=== PATIENT | male | born 1955 | race Caucasian/White ===

== ENCOUNTER 2017-05-16 09:30 | Inpatient (IN) | payer OTHER ==
[2017-05-02 13:26] VITALS: BMI 26.0
--- NOTE | 2017-05-02 14:05 | PAT Medication Instructions ---
Service Date May 02, 2017. Current Home Medication List Alprazolam (Xanax), 1 MG PO QID Aspirin (Aspirin Ec), 81 MG PO QAM Duloxetine HCl (Cymbalta), 1 CAP PO BID Fish Oil (Fish Oil), 1 CAP PO BID Lisinopril (Zestril), 10 MG PO QAM Metformin Hcl (Glucophage), 500 MG PO BID Multivitamin (Multivitamin), 1 TAB PO QAM Oxycodone Ir (Roxicodone Ir), 10 MG PO Q6H PRN for Pain Prednisone (Prednisone), 10 MG PO BID Medication Instructions For Your Scheduled Surgery - Hold the following medications starting 05/02/17: Fish Oil (Fish Oil), 1 CAP PO BID - Hold the following medications 48 hours prior to surgery: Metformin Hcl (Glucophage), 500 MG PO BID - Hold the following medications the morning of surgery: Multivitamin (Multivitamin), 1 TAB PO QAM Lisinopril (Zestril), 10 MG PO QAM - Take the following medications the morning of surgery with a sip of water: Alprazolam (Xanax), 1 MG PO QID Aspirin (Aspirin Ec), 81 MG PO QAM (okay to continue per surgeon) Duloxetine HCl (Cymbalta), 1 CAP PO BID Oxycodone Ir (Roxicodone Ir), 10 MG PO Q6H PRN for Pain (okay to take up to 4 hours prior to surgery if needed) Prednisone (Prednisone), 10 MG PO BID - Take the following medications as scheduled the night before surgery: Prednisone (Prednisone), 10 MG PO BID Oxycodone Ir (Roxicodone Ir), 10 MG PO Q6H PRN for Pain (if needed) Duloxetine HCl (Cymbalta), 1 CAP PO BID Alprazolam (Xanax), 1 MG PO QID If you have any questions please call us at [phone] or [phone] or [phone]
--- NOTE | 2017-05-02 14:52 | DIAGNOSTIC IMAGING REPORT ---
CHEST PREADMISSION(PA/LAT) CLINICAL HISTORY: Preoperative evaluation. COMPARISON STUDY: Chest radiograph December 08, 2014. FINDINGS: Lung volumes are normal. There is no pneumothorax or pleural effusion. Prosthetic aortic valve is noted. Cardiac size is normal. Mediastinal contours are normal. There is no evidence of pulmonary edema. No consolidation is identified. IMPRESSION: No acute cardiopulmonary findings. Electronically signed by: Pepe New M.D. 05/02/2017 2:51 PM Dictated Date/Time: 05/02/2017 2:50 PM
--- NOTE | 2017-05-02 14:57 | DIAGNOSTIC IMAGING REPORT ---
LATERAL VIEWS OF THE CERVICAL SPINE IN FLEXION AND EXTENSION CLINICAL HISTORY: Rheumatoid arthritis. Preop study. COMPARISON STUDY: No previous studies for comparison. FINDINGS: The prevertebral soft tissues are normal. No fractures are visualized. There are degenerative changes with disc space narrowing most pronounced the C3-4 level. There is 4 mm of anterior subluxation of C4 on C5 in flexion. This reduces to 2 mm in extension. There is no evidence of atlantoaxial instability. IMPRESSION: 1. No acute fractures 2. 4 mm of anterior subluxation of C4 on C5 in flexion. This reduces to 2 mm in extension. 3. No evidence of atlantoaxial instability Electronically signed by: Khurram Joe M.D. 05/02/2017 2:56 PM Dictated Date/Time: 05/02/2017 2:54 PM
[2017-05-02 16:01] LABS: BASO % 0.2 %; BASO ABS # 0.01 K/uL (0-0.2); EOS % 1.2 %; HEMATOCRIT 39.6 % (42-52); IG% 0.2 %; LYMPH % 19.1 %; LYMPH ABS # 1.14 K/uL (1.2-3.4); MEAN CELL VOLUME 71.4 fL (80-100); MEAN CORPUSCULAR HEMOGLOBIN 21.4 pg (25-34); MEAN CORPUSCULAR HGB CONC 30.1 g/dl (32-36); MONO % 3.8 %; NEUT % 75.5 %; PLATELET COUNT 262 K/uL (130-400); RED BLOOD COUNT 5.55 M/uL (4.7-6.1); WHITE BLOOD COUNT 5.98 K/uL (4.8-10.8)
[2017-05-02 16:21] LABS: URINE APPEARANCE CLEAR (CLEAR); URINE BILIRUBIN NEG (NEG); URINE COLOR YELLOW; URINE NITRITE NEG (NEG); URINE SPECIFIC GRAVITY 1.009 (1.000-1.030); UROBILINOGEN NEG (NEG); ZZUR CULT IF INDIC CLEAN CATCH NO
[2017-05-02 16:24] LABS: BUN/CREATININE RATIO 17.6 (10-20); CALCIUM 9.8 mg/dl (8.5-10.1); CREATININE 0.9 mg/dl (0.60-1.40); POTASSIUM 4.1 mmol/L (3.5-5.1)
[2017-05-02 16:27] LABS: MANUAL MICROSCOPIC REQUIRED? NO; REVIEW REQ? NO
[2017-05-02 17:05] LABS: COMPLETE YES; OVALOCYTES 1+; TEAR DROP CELLS 1+
[~2017-05-16] VITALS: Ht 185.4 cm; Wt 91.5 kg
[2017-05-16] VITALS (7 sets, daily range): BP systolic 118–170; BP diastolic 79–102; PULSE 67–98; TEMP 36.4–36.9; O2SAT 94–98; Ht 185.4 cm; Wt 91.5 kg
[~2017-05-16 09:30] MED LIST: ALPR1TAB3 PO; ASPI81TA28 PO; CEFAZOLIN 2000 MG/60 ML D5W IV SCH; CYM/30 PO; GLC/500 PO; LACTATED RINGER'S 1000ML 1,000 ML IV SCH; LISI-461 PO; MULT-506 PO; OMG3 PO; OXYC1TAB3 PO; PRED10TA PO
[2017-05-16] MEDS ORDERED: ONDANSETRON INJ 2 MG/ML 2 ML VIAL IV PRN ×2 (10:30→15:30)
[2017-05-16] MEDS ORDERED: EpHEDrine SULFATE INJ 50 MG/ML AMP IV PRN (10:30)
[2017-05-16] MEDS ORDERED: FENTANYL CITRATE INJ 50 MCG/1 ML 2 ML VIAL IV PRN (10:30)
[2017-05-16] MEDS ORDERED: MoRPHine SULFATE 10 MG/ML CARP/VIAL IV PRN (10:30)
[2017-05-16] MEDS ORDERED: ATROPINE SULFATE 0.1 MG/ML 5ML SYR IV PRN (10:30)
--- NOTE | 2017-05-16 12:39 | History & Physical Bridge Note ---
H&P Re-Evaluation Bridge Note: I have examined the patient, reviewed the History & Physical and in the interval since the performance of the History & Physical I have noted the following changes of clinical significance: No changes noted
--- NOTE | 2017-05-16 12:40 | History and Physical ---
History & Physical Date May 16, 2017. Chief Complaint Back and leg pain History of Present Illness The patient is a 61 year old male with complaints of back and leg pain Additional History Hepatic Disease: No Endocrine Disorder: No Kidney Disease: No Hypertension: Yes Heart Disease: No Bleeding Tendencies: No Infectious Diseases: No Allergies Coded Allergies: No Known Allergies (Unverified , 05/02/17) Home Medications Scheduled Alprazolam (Xanax), 1 MG PO QID Aspirin (Aspirin Ec), 81 MG PO QAM Fish Oil (Fish Oil), 1 CAP PO BID Lisinopril (Zestril), 10 MG PO QAM Metformin Hcl (Glucophage), 500 MG PO BID Multivitamin (Multivitamin), 1 TAB PO QAM Prednisone (Prednisone), 10 MG PO BID Scheduled PRN Oxycodone Ir (Roxicodone Ir), 10 MG PO Q6H PRN for Pain Physical Examination Skin: warm/dry, no rash Eyes: normal inspection, EOMI, sclerae normal ENT: normal ENT inspection, pharynx normal Head: normocephalic, atraumatic Neck: supple, no adenopathy, trachea midline Respiratory/Chest: lungs clear, normal breath sounds, no respiratory distress Cardiovascular: regular rate, rhythm, no edema, no murmur Abdomen / GI: normal bowel sounds, non tender Back: normal inspection Extremities: normal inspection, normal range of motion Neurologic/Psych: no motor/sensory deficits, alert, normal reflexes, oriented x 3 Diagnosis Lumbar spinal stenosis Plan of Treatment Lumbar decompression fusion L3 4 with removal of instrumentation L4 5 L5-S1
[2017-05-16] MEDS ORDERED: MIDAZOLAM HCL 1 MG/ML 2ML VIAL ONE (12:50)
[2017-05-16] MEDS ORDERED: FENTANYL CITRATE INJ 50 MCG/1 ML 2 ML VIAL ONE ×2 (12:50→13:42)
[2017-05-16] MEDS ORDERED: BUPIVACAINE/EPINEPHRINE 0.5% MPF 1:200,000 30 ML VIAL ONE (13:15)
[2017-05-16] MEDS ORDERED: BACITRACIN 50000 UNIT VIAL ONE (13:15)
[2017-05-16] MEDS ORDERED: HYDROmorphone INJ 2 MG/ML SYR/VIAL ONE (13:42)
[2017-05-16] MEDS ORDERED: DEXAMETHASONE SOD INJ 4 MG/ML VIAL ONE (13:59)
[2017-05-16] MEDS ORDERED: GLYCOPYRROLATE INJ 0.2 MG/ML VIAL ONE (13:59)
[2017-05-16] MEDS ORDERED: NEOSTIGMINE METHYLSULFATE 1 MG/ML 10ML VIAL ONE (13:59)
[2017-05-16] MEDS ORDERED: ONDANSETRON INJ 2 MG/ML 2 ML VIAL ONE (13:59)
[2017-05-16] MEDS ORDERED: LIDOCAINE HCL 2% 2 ML VIAL (20MG/ML) ONE (13:59)
[2017-05-16] MEDS ORDERED: PROPOFOL IV EMULSION 10 MG/ML 20 ML VIAL IV ONE (13:59)
[2017-05-16] MEDS ORDERED: ROCURONIUM BROMIDE 10 MG/ML 5 ML VIAL IV ONE (13:59)
[2017-05-16] MEDS ORDERED: ESMOLOL HCL 10 MG/ML 10 ML VIAL ONE (13:59)
[2017-05-16] MEDS ORDERED: EpHEDrine SULFATE INJ 50 MG/ML AMP ONE (14:11)
[2017-05-16] MEDS ORDERED: FLOSEAL HEMOSTATIC MATRIX 10ML TOP ONE (15:25)
[2017-05-16] MEDS ORDERED: SODIUM CHLORIDE 0.9% 1000ML 1,000 ML IV SCH (15:27)
[2017-05-16] MEDS ORDERED: NALOXONE HCL 0.4 MG/1 ML VIAL/CARP IV PRN ×2 (15:30)
[2017-05-16] MEDS ORDERED: METOCLOPRAMIDE HCL INJ 5 MG/ML 2 ML VIAL IV PRN (15:30)
[2017-05-16] MEDS ORDERED: PROMETHAZINE HCL INJ 12.5 MG in SODIUM CHLORIDE 0.9% 50ML 50 ML IV PRN (15:30)
[2017-05-16] MEDS ORDERED: LORAZEPAM 0.5 MG TAB PO PRN (15:30)
[2017-05-16] MEDS ORDERED: SOD PHOSPHATE/SOD BIPHOSPHATE ENEMA 132 ML BTL PR PRN (15:30)
[2017-05-16] MEDS ORDERED: LORAZEPAM INJ 0.5 MG in SYRINGE 0 ML IV PRN (15:30)
[2017-05-16] MEDS ORDERED: ACETAMINOPHEN 500 MG TAB PO PRN (15:30)
[2017-05-16] MEDS ORDERED: hydrOXYzine HCL 25 MG TAB PO PRN (15:30)
[2017-05-16] MEDS ORDERED: ALUMINUM/MAGNESIUM SUSP 30 ML UDC PO PRN (15:30)
[2017-05-16] MEDS ORDERED: DO NOT ADMINISTER FLU VACCINE PRN ×3 (15:30)
[2017-05-16] MEDS ORDERED: MAGNESIUM HYDROXIDE SUSP 30 ML UDC PO PRN (15:30)
[2017-05-16] MEDS ORDERED: DO NOT ADMINISTER PNEUMOCOCCAL VACCINE PRN ×2 (15:30)
[2017-05-16] MEDS ORDERED: BISACODYL 10 MG SUPP PR PRN (15:30)
[2017-05-16] MEDS ORDERED: ACETAMINOPHEN IV 100 ML IV PRN (15:30)
--- NOTE | 2017-05-16 15:42 | [facility] Operative Report ---
Operative Report Operative Date May 16, 2017. Pre-Operative Diagnosis Lumbar Spinal Stenosis Post-Operative Diagnosis Same as preoperative Procedure(s) Performed #1 removal of posterior segmental instrumentation L4 5 L5-S1. #2 expiration of fusion L4 5 L5-S1. #3 lumbar decompression medial facetectomies L3 4 #4 posterior spinal fusion L3 4. #5 this and posterior segmental instrumentation L3 4 L4 5. #6 interbody fusion L3 4. #7 placement of peek cage 12 x 26 mm at L3 4 #8 placement of locally harvested morcellized autograft and posterior gutters. #9 placement of ostial amp in the interbody space and posterior lateral gutters. Surgeon Dr. Ibrahima Garcia Wafer Polishing Worker Surgeon(s) Malik Mena PA-C Estimated Blood Loss 200ML Findings Severe spinal stenosis Specimens A.) Explanted Hardware, L4-S1 Description of Procedure Patient was met with preoperatively case discussed all questions are dressed. After informed consent obtained patient was taken to the operative suite and underwent intubation placed in a prone position the Franklyn table on top of the Get frame. All bony prominences were well-padded and eyes were inspected to ensure there is no external pressure placed upon them. This point the lumbar spine was prepped and draped in normal sterile fashion. Sharp dissection with the assistance of Bovie cautery was performed onto an exposing the lamina and transverse processes of L3 instrumentation L4-L5 and S1 levels bilaterally. I then proceeded remove the hardware bilaterally. The right S1 screw was broken. Over the fusion mass was intact. Then performed a complete laminectomy of L3 including medial facet was foraminotomies. Pedicle screws then placed in L3 L4- L5 bilaterally with assistance of fluoroscopy the purposes will placed. Through a transforaminal approach on the left complete discectomy of L314 was performed and plate created to subcortical bleeding bone and a 12 x 26 Hostetter peek cage filled with ostial amp tapped into position. The rods were then locked and final position bilaterally. The transverse processes of L3-L4 and L5 were burred to subcortical bleeding bone. Remaining osteo-amp local harvested autograft was placed and posterior gutters. A 15 round NANCY drain inserted. Incision was then closed with 1 Vicryl in the fascia 2-0 Vicryl subcutaneous tediously 4 Monocryl for Jillian closure Steri-Strip sterile dressing placed. Patient we can take PACU stable condition. Please note Luciano cosme was present at the entire procedure involved in patient positioning complex portions of the surgery and final skin closure. I attest to the content of the Intraoperative Record and any orders documented therein. Any exceptions are noted below.
--- NOTE | 2017-05-16 15:45 | DIAGNOSTIC IMAGING REPORT ---
Radiology LUMBAR SPINE 2 OR 3 VIEW CLINICAL HISTORY: 61 years-old Male presenting with L4-S1 REMOVAL MEDICREA. L3-L4 DECOMPRESSION AND FUSION. TECHNIQUE: 2 fluoroscopic spot image(s) obtained as part of an intraoperative procedure. COMPARISON: 12/23/2012. FINDINGS/IMPRESSION: Postsurgical changes of L3-L5 posterior lumbar fusion with interbody spacers at L3-4 and L5-S1. Old screw remains in the S1 vertebral body status post removal of the L4-S1 fusion. Grossly normal anatomic alignment. Please see surgical report for further details. Fluoroscopy dosage (mGy): Not available. Fluoroscopy time: 11 seconds. Number of fluoroscopic spot images: 2. Electronically signed by: Loi Vargas M.D. 05/16/2017 3:44 PM Dictated Date/Time: 05/16/2017 3:42 PM
[2017-05-16] MEDS ORDERED: PHARMACY GLYCEMIC MGMT CONSULT SCH (15:53)
[2017-05-16] MEDS: INSULIN ASPART 100 UNITS/ML 3 ML PEN SC SCH ×4 (16:00→23:43)
--- NOTE | 2017-05-16 16:02 | Pharmacy Progress Note ---
Glycemic Control Intl Consult Date of Service May 16, 2017. Scope Glycemic Pharmacist consulted by Dr Garcia on 05/16/17 for glycemic control and to write orders per [facility] inpatient glycemic control protocol Objective Weight (Kilograms): 91.50 Accuchecks BSG (last 24hrs): Test 05/16/17 10:51 Bedside Glucose 140 mg/dl (70-99) Recent Pertinent Medications Outpatient Anti-diabetic Regimen: * Metformin 500mg PO BID * A1c = 7.3 % 12/08/14 - ordered updated A1c for tomorrow Risk Factors for Insulin Resistance: * Steroids: Dexamethasone 12mg IV x 1 in OR then 6mg IV Q8H x 3 doses * IVF: Ancef pre and post op mixed in dextrose * Recent Surgery: s/p lumbar decompression and fusion * Diet: Regular Assessment & Plan ASSESSMENT: * 61 year old type 2 diabetic, unknown control, BSG 140mg/dl prior to surgery, s /p lumbar decompression and fusion, receiving IV steroids. * Pt is maintained on oral antidiabetic agents as an outpatient * Oral agents are not recommended for inpatient use d/t drug interactions, changing PO intake, and difficulty titrating for acute hyper/hypoglycemia. ADA recommends re-initiating outpatient oral agents 1-2 days prior to discharge if/ when appropriate if they were held on admission. * Will hold oral agents for admission and utilize SQ basal bolus insulin regimen which is the recommended regimen for inpatient glycemic control. * Will initiate weight based insulin dosing for insulin philip patient and titrate based on BSG trends. * Will begin with a one time dose of Lantus and a tight CF and CR for anticipated steroid induced hyperglycemia * ADA & AACE recommend a goal blood sugar range 140-180 mg/dl for the majority of critically ill & non-critically ill patients. However, more stringent targets may be selected in individual cases. Will utilize more stringent goal of 110-140mg/dl based on patient age & comorbidities. Additionally, tighter glycemic control is warranted to facilitate wound/infection healing. PLAN FOR INPATIENT GLYCEMIC CONTROL: * Holding outpatient oral diabetes medications * Begin in 1-2 days based of patient's diet and SCr * Basal insulin with LANTUS 46 units SQ x 1 dose now, and another reduced dose tomorrow morning based on blood sugar * Correctional Insulin with NOVOLOG per scale ACHS or Q6hrs while NPO and at 0000 and 0400 overnight * Goal Range: Low 110 mg/dL - High 140 mg/dL * Correction Factor: 20 mg/dL/unit * Nutritional / Prandial insulin per carb ratio of 1 unit per 6 grams CHO consumed * Please note that the plan above was derived based on current level of insulin resistance and hospital stress. These recommendations are appropriate for inpatient admission only. Plan of care upon discharge will need to be reassessed to avoid potential outpatient hypo/hyperglycemia. Thank you.
[2017-05-16] MEDS: HYDROmorphone HCL 0.5MG/ML 50 ML CASSETTE IV PRN ×3 (16:05→23:01)
--- NOTE | 2017-05-16 16:23 | Anesthesiology Progress Note ---
Anesthesia Post Op Note Date & Time May 16, 2017 at 16:23 Vital Signs Pain Intensity: 0 Vital Signs Past 12 Hours Date Time Temp Pulse Resp B/P (MAP) Pulse Ox O2 Delivery O2 Flow Rate FiO2 05/16/17 16:20 71 16 167/97 100 Nasal Cannula 4 05/16/17 16:10 68 16 167/96 100 Oxymask 10 05/16/17 16:00 74 16 161/85 100 Oxymask 10 05/16/17 15:53 36.8 83 16 159/87 100 Oxymask 10 05/16/17 10:09 36.9 68 18 118/79 Room Air Notes Mental Status: alert / awake / arousable, participated in evaluation Pt Amnestic to Procedure: Yes Nausea / Vomiting: adequately controlled Pain: adequately controlled Airway Patency, RR, SpO2: stable & adequate BP & HR: stable & adequate Hydration State: stable & adequate Anesthetic Complications: no major complications apparent
[2017-05-16] MEDS: LACTATED RINGER'S 1000ML 1,000 ML IV SCH ×2 (17:18→21:34)
[2017-05-16] MEDS ORDERED: LISINOPRIL 10 MG TAB PO STA (17:24)
[2017-05-16] MEDS ORDERED: HydrALAZINE HCL 20 MG/ML VIAL IV. PRN (17:30)
[2017-05-16] MEDS: ALPRAZOLAM 0.5 MG TAB PO SCH ×2 (17:39→21:23)
[2017-05-16] MEDS ORDERED: LANTUS PER UNIT CHARGE SQ ONE (18:00)
--- NOTE | 2017-05-16 19:45 | Medical Consult ---
Consultation Date of Consultation: May 16, 2017. Attending Physician: Ibrahima Garcia D.O. Reason for Consultation: post-operative medical management History of Present Illness 61 yo M with chronic back pain presented for elective lumbar decompression and fusion with removal of previously implanted instrumentation. He is doing well post-operatively except mentions that his RA seemed to show signs of flare this morning. 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 At baseline, he takes prednisone 10mg PO BID for chronic suppressive therapy and fore flares he will take 40mg or 50mg for a couple of days with a prednisone taper. He sees [facility] Winslow in [place], [place] as his Intenist and Dr. Merritt for Rheumatology in [place], [place]. Per the patient he has been tried on several treatments for RA unsuccessfully in the past including MTX, Humira, Enbrel, Remicaide and Rituxan. Otherwise, he has a h/o aortic valve replacement with a bioprosthetic valve and has no history of CAD. He is a current smoker and diabetic who is on Metformin 500mg PO BID as outpatient. He does not know his prior HbA1C off hand and doesn't check his blood sugar regularly. He states he eats junk food all the time; "I just have to have it." He was counseled on quitting smoking but is not interested at this time. Post -operatively he is doing well with pain well-managed, no nausea, tolerating PO and has plans to ambulate with nursing staff in a few minutes. He is in good spirits. 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 Social History Smoking Status: Current Every Day Smoker Smokeless Tobacco Use: No Alcohol Use: none Drug Use: none Marital Status: Housing Status: lives with significant other Occupation Status: disabled Allergies Coded Allergies: No Known Allergies (Unverified , 05/02/17) Home Medications Reported Home Medications Medications Dose Route/Sig Max Daily Dose Days Date Category Prednisone 10 Mg Tab 10 Mg PO BID 05/02/17 Reported Roxicodone Ir (Oxycodone HCl) 5 Mg Tab 10 Mg PO Q6H PRN 05/02/17 Reported Aspirin Ec (Aspirin) 81 Mg Tab 81 Mg PO QAM 05/02/17 Reported Fish Oil 1 Gm Cap 1 Cap PO BID 12/08/14 Reported Xanax (Alprazolam) 1 Mg Tab 1 Mg PO QID 12/22/12 Reported Multivitamin (Multivitamins) Tab 1 Tab PO QAM 12/01/12 Reported Zestril (Lisinopril) 10 Mg Tab 10 Mg PO QAM 12/01/12 Reported Glucophage (Metformin Hcl) 500 Mg Tab 500 Mg PO BID 12/01/12 Reported Current Inpatient Medications Current Inpatient Medications Medications (Trade) Dose Ordered Sig/Eleanor Route Start Time Stop Time Status Last Admin Dose Admin Lactated Ringer's 1,000 ml @ 15 mls/hr Q24H IV 05/16/17 06:00 05/17/17 05:59 Dexamethasone Sodium Phosphate 6 mg/Syringe 1.5 ml @ 1 mls/min Q8H IV 05/16/17 22:00 05/17/17 14:02 Promethazine HCl 12.5 mg/Sodium Chloride 50.5 ml @ 202 mls/hr Q6H PRN IV 05/16/17 15:30 06/15/17 15:29 Ondansetron HCl (Zofran Inj) 4 mg Q6H PRN IV 05/16/17 15:30 06/15/17 15:29 Metoclopramide HCl (Reglan Inj) 10 mg Q6H PRN IV 05/16/17 15:30 06/15/17 15:29 Lorazepam (Ativan Tab) 1 mg Q8H PRN PO 05/16/17 15:30 06/15/17 15:29 Lorazepam 0.5 mg/ Syringe 0.25 ml @ 1 mls/min Q8H PRN IV 05/16/17 15:30 06/15/17 15:29 Pneumococcal Polysaccharide Vaccine 1 ea PRN PRN N/A 05/16/17 15:30 06/15/17 15:29 Influenza Virus Vacc Triv Types A&B 1 ea PRN PRN N/A 05/16/17 15:30 06/15/17 15:29 Polyethylene (Miralax Powder Packet) 17 gm Q6 PO 05/18/17 06:00 06/17/17 05:59 Bisacodyl (Dulcolax Supp) 10 mg DAILY PRN CA 05/16/17 15:30 06/15/17 15:29 Magnesium Hydroxide (Milk Of Magnesia Susp) 30 ml DAILY PRN PO 05/16/17 15:30 06/15/17 15:29 Hydromorphone HCl (Dilaudid Inj) 0.5 mg Q3H PRN IV 05/17/17 06:00 05/31/17 05:59 Oxycodone HCl (Roxicodone Immediate Rel Tab) 5-10mg prn moderate to sev... Q4H PRN PO 05/17/17 06:00 05/31/17 05:59 Cefazolin Sodium 2000 mg/Dextrose 60 ml @ 100 mls/hr Q8H IV 05/16/17 22:00 05/17/17 06:35 Lactated Ringer's 1,000 ml @ 150 mls/hr Q6H40M IV 05/16/17 15:27 06/15/17 15:26 05/16/17 17:18 150 MLS/HR Acetaminophen (Tylenol Tab) 1,000 mg Q8H PRN PO 05/16/17 15:30 06/15/17 15:29 Acetaminophen 100 ml @ 400 mls/hr Q8H PRN IV 05/16/17 15:30 06/15/17 15:29 Naloxone HCl (Narcan Inj) 0.1 mg Q5M PRN IV 05/16/17 15:30 06/15/17 15:29 Senna/Docusate Sodium (Senokot S Tab) 2 tab HS PO 05/16/17 21:00 06/15/17 20:59 Sodium Biphosphate/ Sodium Phosphate (Fleet Enema) 132 ml ONE PRN CA 05/16/17 15:30 06/15/17 15:29 Hydroxyzine HCl (Vistaril Tab) 25 mg Q8H PRN PO 05/16/17 15:30 06/15/17 15:29 Al Hydroxide/Mg Hydroxide (Maalox Susp) 30 ml Q6H PRN PO 05/16/17 15:30 06/15/17 15:29 Famotidine (Pepcid Tab) 20 mg Q12 PRN PO 05/16/17 15:30 06/15/17 15:29 Diphenhydramine HCl (Benadryl Cap) 25 mg Q6H PRN PO 05/16/17 15:30 06/15/17 15:29 Miscellaneous Information (Discontinue DRAFTING SUPERVISOR) 1 ea TODAY@0600 N/A 05/17/17 06:00 05/17/17 06:01 Naloxone HCl (Narcan Inj) 0.1 mg Q5M PRN IV 05/16/17 15:30 05/17/17 06:00 Hydromorphone HCl (Dilaudid Dry Cell Assembly Machine Tender) 25 mg PRN PRN IV 05/16/17 15:30 05/17/17 06:00 05/16/17 16:47 25 MG Sodium Chloride 1,000 ml @ 15 mls/hr Q24H IV 05/16/17 15:27 05/17/17 06:00 Alprazolam (Xanax Tab) 1 mg QID PO 05/16/17 17:00 06/15/17 16:59 05/16/17 17:39 1 MG Aspirin (Ecotrin Tab) 81 mg QAM PO 05/17/17 09:00 06/16/17 08:59 Lisinopril (Zestril Tab) 10 mg QAM PO 05/17/17 09:00 06/16/17 08:59 Prednisone (PredniSONE TAB) 10 mg BID PO 05/16/17 21:00 06/15/17 20:59 Miscellaneous Information (Consult Glycemic Management Pharmacy) 1 ea UD N/A 05/16/17 15:53 06/15/17 15:52 Insulin Aspart (novoLOG ASPART) SLIDING SCALE ACHS SC 05/16/17 16:00 06/15/17 15:59 05/16/17 18:12 6 UNITS Insulin Aspart (novoLOG ASPART) SLIDING SCALE 0000,0400 SC 05/17/17 00:00 05/17/17 04:01 Hydralazine HCl (HydrALAZINE INJ) 10 mg Q6H PRN IV. 05/16/17 17:30 06/15/17 17:29 Review of Systems AT least ten systems were reviewed and negative except as indicated in HPI. Physical Exam Date Time Temp Pulse Resp B/P (MAP) Pulse Ox O2 Delivery O2 Flow Rate FiO2 05/16/17 17:50 36.4 69 18 153/89 (110) 95 Nasal Cannula 3.0 05/16/17 17:21 36.6 98 16 162/100 (120) 97 Nasal Cannula 3.0 05/16/17 16:50 36.5 67 18 170/102 (124) 94 Nasal Cannula 4.0 05/16/17 16:50 Nasal Cannula 4.0 05/16/17 16:20 71 16 167/97 100 Nasal Cannula 4 05/16/17 16:10 68 16 167/96 100 Oxymask 10 05/16/17 16:00 74 16 161/85 100 Oxymask 10 05/16/17 15:53 36.8 83 16 159/87 100 Oxymask 10 05/16/17 10:09 36.9 68 18 118/79 Room Air General Appearance: WD/WN, no apparent distress Head: normocephalic, atraumatic Eyes: normal inspection, sclerae normal ENT: hearing grossly normal Neck: trachea midline Respiratory/Chest: lungs clear, normal breath sounds, no respiratory distress, no accessory muscle use Cardiovascular: regular rate, rhythm, no edema, no gallop, no JVD, no murmur, normal peripheral pulses Abdomen/GI: normal bowel sounds, non tender, soft Back: + pertinent finding (lower back wound closed with dressing intact that is c/d/i, NANCY drain in place-bloody fluid) Extremities/Musculoskelatal: normal inspection, + pertinent finding (2/5 dorsiflexion of L foot) Neurologic/Psych: 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 ) Skin: normal color, warm/dry Laboratory Results 05/02/17 14:15 Red Blood Count 5.55, Mean Corpuscular Volume 71.4, Mean Corpuscular Hemoglobin 21.4, Mean Corpuscular Hemoglobin Concent 30.1, Mean Platelet Volume 10.0, Neutrophils (%) (Auto) 75.5, Lymphocytes (%) (Auto) 19.1, Monocytes (%) (Auto) 3.8, Eosinophils (%) (Auto) 1.2, Basophils (%) (Auto) 0.2, Neutrophils # (Auto) 4.52, Lymphocytes # (Auto) 1.14, Monocytes # (Auto) 0.23, Eosinophils # (Auto) 0.07, Basophils # (Auto) 0.01 05/02/17 14:15 Test 05/02/17 14:15 05/16/17 15:53 White Blood Count 5.98 K/uL (4.8-10.8) Red Blood Count 5.55 M/uL (4.7-6.1) Hemoglobin 11.9 g/dL (14.0-18.0) Hematocrit 39.6 % (42-52) Mean Corpuscular Volume 71.4 fL (80-100) Mean Corpuscular Hemoglobin 21.4 pg (25-34) Mean Corpuscular Hemoglobin Concent 30.1 g/dl (32-36) Platelet Count 262 K/uL (130-400) Mean Platelet Volume 10.0 fL (7.4-10.4) Neutrophils (%) (Auto) 75.5 % Lymphocytes (%) (Auto) 19.1 % Monocytes (%) (Auto) 3.8 % Eosinophils (%) (Auto) 1.2 % Basophils (%) (Auto) 0.2 % Neutrophils # (Auto) 4.52 K/uL (1.4-6.5) Lymphocytes # (Auto) 1.14 K/uL (1.2-3.4) Monocytes # (Auto) 0.23 K/uL (0.11-0.59) Eosinophils # (Auto) 0.07 K/uL (0-0.5) Basophils # (Auto) 0.01 K/uL (0-0.2) RDW Standard Deviation 46.7 fL (36.4-46.3) RDW Coefficient of Variation 18.0 % (11.5-14.5) Immature Granulocyte % (Auto) 0.2 % Immature Granulocyte # (Auto) 0.01 K/uL (0.00-0.02) Tear Drop Cells 1+ Ovalocytes 1+ Urine Color YELLOW Urine Appearance CLEAR (CLEAR) Urine pH 7.0 (4.5-7.5) Urine Specific [place] 1.009 (1.000-1.030) Urine Protein NEG (NEG) Urine Glucose (UA) NEG (NEG) Urine Ketones NEG (NEG) Urine Occult Blood NEG (NEG) Urine Nitrite NEG (NEG) Urine Bilirubin NEG (NEG) Urine Urobilinogen NEG (NEG) Urine Leukocyte Esterase NEG (NEG) Anion Gap 8.0 mmol/L (3-11) Est Creatinine Clear Calc Drug Dose 99.9 ml/min Estimated GFR () 108.0 Estimated GFR (Non- 93.2 BUN/Creatinine Ratio 17.6 (10-20) Calcium Level 9.8 mg/dl (8.5-10.1) Bedside Glucose 184 mg/dl (70-99) Last 24 Hours Test 05/16/17 10:51 05/16/17 15:53 Bedside Glucose 140 mg/dl 184 mg/dl Assessment & Plan 61 yo M with chronic back pain presents for elective back surgery today. 1. s/p Lumbar decompression with fusion and removal of prior instrumentation -POD 0; surgery performed by Dr. Garcia -post-operative pain well managed with DRAFTING SUPERVISOR -monitor for acute blood loss with daily H&H -pt encouraged to utilize spirometry to prevent post-op infection -PT/OT -activity and wound care orders per ortho protocol -will continue to follow throughout hospitalization 2. Rheumatoid arthritis-managed with prednisone 10mg PO BID at baseline. May need higher dose if flare symptoms continue into tomorrow off the perioperative steroids. DO NOT STOP PREDNISONE. 3. DMII-ISS/Glargine and carb coverage. Appreciate inpatient pharmacy consult. 4. HTN-was elevated post-operatively, however, he hadn't taken his lisinopril yet. Improved after giving this. Hydralazine ordered PRN SBP>180 overnight. 5. Anxiety-cont Xanax scheduled. 6. s/p bioprosthetic aortic valve replacement 7. Tobacco use-CONTEMPLATIVE PHASE, no plan to quit. Counseled on the benefits of quitting and risks of continuing to smoke. DVT prophy-per Ortho, currently SCDs Full Code Dispo-early ambulation, needs PT evaluation. Per Ortho. Pt gets medical care at [facility] in [place], [place]. Shantell Savage DO [facility] Hospitalist DVT Prophylaxis -per ortho protocol Code Status -full code Dispo -per ortho. Thank you for this consultation. We will follow the patient with you during their hospital stay. You can reach a member of the [facility] Hospitalist Team 17/03 via pager @ [phone]. You can reach me via cell @ [phone].
[2017-05-16] MEDS: DOCUSATE SODIUM/SENNA 50/8.6MG TAB PO SCH (21:25)
[2017-05-16] MEDS: CEFAZOLIN IV 2,000 MG in DEXTROSE 5% 50ML 50 ML IV SCH (21:34)
[2017-05-16] MEDS: DEXAMETHASONE INJ 6 MG in SYRINGE 0 ML IV SCH (21:34)
[2017-05-17] MEDS: LACTATED RINGER'S 1000ML 1,000 ML IV SCH (03:57)
[2017-05-17 04:00] VITALS: BP 132/78; PULSE 72; TEMP 36.4; O2SAT 95
[2017-05-17] MEDS: INSULIN ASPART 100 UNITS/ML 3 ML PEN SC SCH ×5 (04:03→21:00)
[2017-05-17] MEDS: CEFAZOLIN IV 2,000 MG in DEXTROSE 5% 50ML 50 ML IV SCH (05:30)
[2017-05-17] MEDS ORDERED: NURSING DECISION MEDICATION ORDER SCH (05:30)
[2017-05-17] MEDS: DEXAMETHASONE INJ 6 MG in SYRINGE 0 ML IV SCH ×2 (05:30→13:43)
[2017-05-17] MEDS: FAMOTIDINE 20 MG TAB PO PRN (05:35)
[2017-05-17] MEDS ORDERED: DC PCA SCH (06:00)
[2017-05-17] MEDS ORDERED: HYDROmorphone INJ 0.5 MG/0.5 ML SYR IV PRN (06:00)
[2017-05-17 06:34] LABS: HEMATOCRIT 33.7 % (42-52); MEAN CELL VOLUME 70.8 fL (80-100); MEAN CORPUSCULAR HEMOGLOBIN 21.2 pg (25-34); MEAN PLATELET VOLUME 9.9 fL (7.4-10.4); PLATELET COUNT 232 K/uL (130-400); RED BLOOD COUNT 4.76 M/uL (4.7-6.1); WHITE BLOOD COUNT 10.85 K/uL (4.8-10.8)
[2017-05-17 06:47] LABS: COMPLETE YES; HYPOCHROMIA PRESENT; IG% 0.2 %; LYMPH % 4.4 %; LYMPH ABS # 0.48 K/uL (1.2-3.4); MONO % 4.1 %; NEUT % 91.3 %
[2017-05-17 06:49] LABS: BUN/CREATININE RATIO 15.9 (10-20); CALCIUM 8.8 mg/dl (8.5-10.1); CREATININE 0.87 mg/dl (0.60-1.40); POTASSIUM 4.2 mmol/L (3.5-5.1)
[2017-05-17 07:29] VITALS: BP 112/67; PULSE 72; TEMP 36.5; O2SAT 98
[2017-05-17 07:46] LABS: ESTIMATED AVERAGE GLUCOSE 134 mg/dl; HA1C FLAG Normal (Normal)
[2017-05-17] MEDS ORDERED: INSULIN GLARGINE SOLOSTAR 100 UNITS/ML 3 ML PEN SC SCH (08:00)
[2017-05-17] MEDS: ASPIRIN 81 MG ECTAB PO SCH (08:45)
[2017-05-17 08:47] VITALS: BP 145/86; PULSE 80
[2017-05-17] MEDS: LISINOPRIL 10 MG TAB PO SCH (08:48)
[2017-05-17] MEDS: ALPRAZOLAM 0.5 MG TAB PO SCH ×4 (08:54→21:25)
[2017-05-17] MEDS ORDERED: LANTUS PER UNIT CHARGE SQ SCH (09:00)
[2017-05-17] MEDS ORDERED: RXC5 PO (10:16)
--- NOTE | 2017-05-17 10:16 | Discharge Instructions ---
Discharge Instructions Date of Service May 17, 2017. Admission Reason for Admission: Lumbar Spinal Stenosis Discharge Discharge Diagnosis / Problem: lumbar stenosis Discharge Goals Goal(s): Improve function Activity Recommendations Activity Limitations: per Instructions/Follow-up section . Instructions / Follow-Up Instructions / Follow-Up ACTIVITY RECOMMENDATIONS: SELF CARE INSTRUCTIONS AFTER THORACIC/LUMBAR FUSIONS 1. You may walk to your tolerance. It is good exercise for your legs and back. Expect some back and intermittent leg aches and pains. 2. You may perform "counter-top" level activities (make a sandwich, claudia with a project, etc.). 3. No bending or lifting of more than 10 pounds or back twisting of any nature (roll like a log when turning in bed). 4. You may ride in a car for 20-30 minutes at a time. No driving until after your first visit with your doctor. 5. Frequent changes of position and restricting sitting to 30 minutes at a time will help limit the amount of back spasms and stiffness you may experience. 6. You may discontinue the use of ambulatory aids (cane, crutches, etc.) once your strength and confidence allow. 7. 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 Do not take a tub bath, sit in a hot tub or go into a swimming pool until after your first recheck in the office. SPECIAL CARE INSTRUCTIONS: VERY IMPORTANT TO READ AND REVIEW A. Your surgical incision has been closed with a cosmetic suture under the skin that will dissolve in about 6 weeks. In 14 days, you can use a pair of clean scissors and cut the suture that is left outside of the skin at the ends of your incision. 1. The small skin tapes can be removed 7 days after surgery if they have not fallen off by that point. 2. You may keep the wound open to air as much as possible to promote healing after post-op day number 5 unless told otherwise by your doctor. 3. If you think the wound looks like it is becoming infected (redness or worsening drainage) and/or you are experiencing fever, chill or worsening back pain and muscle spasms, contact the office so that we may evaluate you as soon as possible. B. Complications are uncommon, but please contact us if you have any signs or symptoms of: 1. wound infection (fever higher than 102.5 degrees F, redness, separation of wound, drainage, or increasing pain from the incision) 2. blood clots in legs (pain, swelling, redness and warmth in legs) 3. urinary tract infection (fever higher than 102.5 degrees F, burning upon urination or increased frequency of urination) 4. nerve problems (inability to walk on your toes or heels, numbness, loss of bowel or bladder control) 5. any other symptoms that concern you C. Please call the office at if you have any concerns or questions about your operation or recovery. D. No smoking! Smoking drastically decreases the chance of a solid fusion. E. Do not take any anti-inflammatory medications (Indocin, Advil, Motrin, Aspirin, Naprosyn, etc.) as these may inhibit the chance of a solid fusion. Tylenol is okay to take for pain. MANAGING PAIN AFTER SPINAL SURGERY 1. Narcotic medication is intended for short-term use and will be provided for surgical pain. Surgical pain usually lasts for a period of 4-6 weeks. Narcotic medication includes Percocet, Vicodin, Darvocet, Tylenol #3 or Lortab. 2. Longer-term pain is more appropriately treated with non-narcotic medication such as Tylenol ES. 3. Muscle spasm is not appropriately treated with narcotics. Muscle relaxers such as Soma, Flexeril or Skelaxin can be used along with Tylenol ES. 4. Remember that we all live with some "aches and pains". This is not unusual or uncommon after an injury or as we get older. a. Back pain is expected and may include muscle spasms for 4 to 6 weeks after surgery. The pain should gradually improve. If the pain worsens for no apparent reason, please contact the office. b. Intermittent leg pain may also be experienced and should not be concerned about unless it worsens for no apparent reason. If so, please contact the office. 5. We will provide appropriate medication within the normal guidelines of their prescribed use. We will also be very cautious and aware of potential abuse and extended duration of patients' medication needs. a. Pain medications are for your comfort and to assist with sleep and rest so that the tissue can heal. They are not provided in order to return to normal activity and should not be used through the day. To do so or worsening pain at night can result from ongoing tissue damage and development of tolerance to the prescribed medicine. 6. Please allow 2-3 days to process refills. Prescriptions will not be mailed but must be picked up at the office. FOLLOW UP VISIT: Keep your scheduled follow-up appointment. Any questions, please call the office at . Current Hospital Diet Patient's current hospital diet: Diabetes Type 2 Diet Discharge Diet Recommended Diet: Regular Diet Procedures Procedures Performed: #1 removal of posterior segmental instrumentation L4 5 L5-S1. #2 expiration of fusion L4 5 L5-S1. #3 lumbar decompression medial facetectomies L3 4 #4 posterior spinal fusion L3 4. #5 this and posterior segmental instrumentation L3 4 L4 5. #6 interbody fusion L3 4. #7 placement of peek cage 12 x 26 mm at L3 4 #8 placement of locally harvested morcellized autograft and posterior gutters. #9 placement of ostial amp in the interbody space and posterior lateral gutters. Pending Studies Studies pending at discharge: no Laboratory Results Hemoglobin A1c Test 05/17/17 05:47 Range/Units Estimated Average Glucose 134 mg/dl Hemoglobin A1c 6.3 H 4.5-5.6 % Medical Emergencies . Who to Call and When: Medical Emergencies: If at any time you feel your situation is an emergency, please call 911 immediately. . Non-Emergent Contact Non-Emergency issues call your: Primary Care Provider . "Provider Documentation" section prepared by Ibrahima Garcia. . VTE Core Measure Inpt VTE Proph given/why not?: Yayo Shaver, [facility]
--- NOTE | 2017-05-17 10:49 | Progress Note ---
Progress Note Date of Service May 17, 2017. Progress Note Patient's back pain and leg pain are markedly improved. On exam is sitting in chair at bedside. Good strength testing. Assessment status post lumbar decompression fusion. Planned this time we would anticipate possible home tomorrow if he continues to progress the current rate.
[2017-05-17 11:15] VITALS: BP 142/88; PULSE 74; TEMP 36.5; O2SAT 99
[2017-05-17] MEDS: OXYCODONE HCL IR 5 MG TAB (IMMEDIATE RELEASE) PO PRN ×2 (13:59→21:29)
[2017-05-17 14:15] VITALS: BP 142/88; PULSE 72; O2SAT 99
--- NOTE | 2017-05-17 15:03 | Progress Note ---
Internal Med Progress Note Date of Service: May 17, 2017. Provider Documentation: SUBJECTIVE: no acute distress, mild back pain but able to sit up. denies shortness of breath or other areas of pain OBJECTIVE: Exam: General-no distress, breathing on room air Eyes-EOMI Neck-no JVD, nontender Lungs-CTABL Heart- regular rate Abdomen- soft, nontender, + bowel sounds Extremities- in SCDs Neuro- awake and alert ASSESSMENT & PLAN: 1. s/p Lumbar decompression with fusion and removal of prior instrumentation -POD 1; surgery performed by Dr. Garcia 2. Rheumatoid arthritis-managed with prednisone 10mg PO BID at baseline. May need higher dose if flare symptoms continue into tomorrow off the perioperative steroids. 3. DMII-ISS/Glargine and carb coverage 4. HTN controlled, continue meds lisinopril 10 mg and hydralazine prn 5. Anxiety-cont Xanax scheduled. 6. s/p bioprosthetic aortic valve replacement 7. Tobacco use at home DVT prophy-per Ortho, currently SCDs Full Code Dispo-early ambulation, PT, gets medical care at [facility] in [place], [place]. Vital Signs: Date Time Temp Pulse Resp B/P (MAP) Pulse Ox O2 Delivery O2 Flow Rate FiO2 05/17/17 14:15 72 99 05/17/17 11:15 36.5 74 17 142/88 (106) 99 Room Air 05/17/17 08:47 80 145/86 (105) 05/17/17 07:40 Room Air 05/17/17 07:29 36.5 72 17 112/67 (82) 98 Room Air 05/17/17 04:00 36.4 72 17 132/78 (96) 95 Room Air 05/16/17 23:15 Room Air 05/16/17 23:11 36.4 72 16 130/80 (97) 94 Room Air 05/16/17 19:59 36.5 73 17 128/83 (98) 95 Room Air 05/16/17 18:50 36.4 73 17 159/101 (120) 98 Nasal Cannula 3.0 05/16/17 17:50 36.4 69 18 153/89 (110) 95 Nasal Cannula 3.0 05/16/17 17:21 36.6 98 16 162/100 (120) 97 Nasal Cannula 3.0 05/16/17 16:50 36.5 67 18 170/102 (124) 94 Nasal Cannula 4.0 05/16/17 16:50 Nasal Cannula 4.0 05/16/17 16:50 Nasal Cannula 4.0 05/16/17 16:20 71 16 167/97 100 Nasal Cannula 4 05/16/17 16:10 68 16 167/96 100 Oxymask 10 05/16/17 16:00 74 16 161/85 100 Oxymask 10 05/16/17 15:53 36.8 83 16 159/87 100 Oxymask 10 Lab Results: Results Past 24 Hours Test 05/16/17 15:53 05/16/17 21:04 05/16/17 23:40 05/17/17 04:00 Range/Units Bedside Glucose 184 178 166 163 70-99 mg/dl Test 05/17/17 05:47 05/17/17 07:55 05/17/17 11:55 Range/Units White Blood Count 10.85 4.8-10.8 K/uL Red Blood Count 4.76 4.7-6.1 M/uL Hemoglobin 10.1 14.0-18.0 g/dL Hematocrit 33.7 42-52 % Mean Corpuscular Volume 70.8 80-100 fL Mean Corpuscular Hemoglobin 21.2 25-34 pg Mean Corpuscular Hemoglobin Concent 30.0 32-36 g/dl Platelet Count 232 130-400 K/uL Mean Platelet Volume 9.9 7.4-10.4 fL Neutrophils (%) (Auto) 91.3 % Lymphocytes (%) (Auto) 4.4 % Monocytes (%) (Auto) 4.1 % Eosinophils (%) (Auto) 0.0 % Basophils (%) (Auto) 0.0 % Neutrophils # (Auto) 9.91 1.4-6.5 K/uL Lymphocytes # (Auto) 0.48 1.2-3.4 K/uL Monocytes # (Auto) 0.44 0.11-0.59 K/uL Eosinophils # (Auto) 0.00 0-0.5 K/uL Basophils # (Auto) 0.00 0-0.2 K/uL RDW Standard Deviation 46.2 36.4-46.3 fL RDW Coefficient of Variation 18.0 11.5-14.5 % Immature Granulocyte % (Auto) 0.2 % Immature Granulocyte # (Auto) 0.02 0.00-0.02 K/uL Hypochromasia PRESENT Sodium Level 138 136-145 mmol/L Potassium Level 4.2 3.5-5.1 mmol/L Chloride Level 104 98-107 mmol/L Carbon Dioxide Level 25 21-32 mmol/L Anion Gap 9.0 3-11 mmol/L Blood Urea Nitrogen 14 7-18 mg/dl Creatinine 0.87 0.60-1.40 mg/dl Est Creatinine Clear Calc Drug Dose 103.3 ml/min Estimated GFR () 109.5 Estimated GFR (Non- 94.5 BUN/Creatinine Ratio 15.9 10-20 Random Glucose 142 70-99 mg/dl Estimated Average Glucose 134 mg/dl Hemoglobin A1c 6.3 4.5-5.6 % Calcium Level 8.8 8.5-10.1 mg/dl Bedside Glucose 167 153 70-99 mg/dl
[2017-05-17 15:19] VITALS: BP 150/79; PULSE 67; TEMP 36.4; O2SAT 99
[2017-05-17] MEDS: DOCUSATE SODIUM/SENNA 50/8.6MG TAB PO SCH (21:24)
[2017-05-18 00:09] VITALS: BP 96/57; PULSE 54; TEMP 36.4; O2SAT 99
[2017-05-18] MEDS: OXYCODONE HCL IR 5 MG TAB (IMMEDIATE RELEASE) PO PRN ×2 (03:34→09:07)
[2017-05-18] MEDS ORDERED: NURSING DECISION MEDICATION ORDER SCH (05:45)
[2017-05-18] MEDS: FAMOTIDINE 20 MG TAB PO PRN (05:47)
[2017-05-18] MEDS ORDERED: POLYETHYLENE (MIRALAX) 17 GM PACK PO SCH (06:00)
[2017-05-18 07:37] VITALS: BP 147/100; PULSE 60; TEMP 36.5; O2SAT 100
[2017-05-18] MEDS: INSULIN ASPART 100 UNITS/ML 3 ML PEN SC SCH (08:00)
[2017-05-18 08:08] VITALS: BP 148/79
--- NOTE | 2017-05-18 08:37 | Discharge Summary ---
Orthopedic Discharge Summary Admission Date/Reason May 16, 2017 at 13:20 Lumbar Spinal Stenosis. Discharge Date/Disposition May 18, 2017 Home Diagnosis Principal Diagnosis: Lumbar spinal stenosis Admission Physical Exam As per Admitting History & Physical. Hospital Course Patient underwent lumbar decompression and fusion on Friday tolerated this well was taken to the orthopedic floor postoperatively. Postoperative day #1 is up in amatory leg symptoms markedly improved. Back pain controlled. He was socially discharge home postop day #2. Discharge orders and instructions can be found on the chart for further review. Discharge Instructions Please refer to the electronic Patient Visit Report (Discharge Instructions) for additional information.
[2017-05-18] MEDS: ALPRAZOLAM 0.5 MG TAB PO SCH (09:06)
[2017-05-18] MEDS: LISINOPRIL 10 MG TAB PO SCH (09:07)
[2017-05-18] MEDS: ASPIRIN 81 MG ECTAB PO SCH (09:07)
--- NOTE | 2017-05-18 10:42 | Progress Note ---
Progress Note Date of Service May 18, 2017. Progress Note Patient seen and examined in bed. awaiting his discharge papers from orthopedics. There is a NANCY drain and left hand Iv to be taken out by the nurse Other exam findings General: no acute distress Heart: RRR Lungs: CTABL Abdomen: soft, nontender Extremities: no edema Disposition: patient awaiting discharge by orthopedics after back surgery. No further senior talent management consultant recommendations at this time
[2017-05-18 11:06] VITALS: BP 148/79; PULSE 60; TEMP 36.5; O2SAT 100
== END 2017-05-18 12:38 | disposition home or self-care (01) | DRG 460 ==
LOC: C.ACU 09:30 → C.3E 13:20 → ENRESERV 16:15
PROVIDERS: ADMIT Orthopaedic Surgery Orthopaedic Surgery of the Spine; ATTEND Orthopaedic Surgery Orthopaedic Surgery of the Spine
PROC: 0SP30AZ Removal of Interbody Fusion Device from Lumbosacral Joint, Open Approach (ICD-10-PCS; principal; 2017-05-16 11:45)
PROC: 0SG00A1 (ICD-10-PCS; principal; 2017-05-16 11:45)
PROC: 0ST40ZZ Resection of Lumbosacral Disc, Open Approach (ICD-10-PCS; principal; 2017-05-16 11:45)
DX: M48.06 Spinal stenosis, lumbar region (principal); E11.9 Type 2 diabetes mellitus without complications; I10 Essential (primary) hypertension; F41.9 Anxiety disorder, unspecified; Z79.82 Long term (current) use of aspirin; Z79.84 Long term (current) use of oral hypoglycemic drugs; Z79.52 Long term (current) use of systemic steroids; Z79.899 Other long term (current) drug therapy; F17.200 Nicotine dependence, unspecified, uncomplicated